=== PATIENT | male | born 1995 | race Hispanic/Latino ===

== ENCOUNTER 2024-10-10 19:18 | Emergency (ER) | payer OTHER ==
--- NOTE | 2024-10-10 19:50 | ERN ---
General Chief Complaint: Abdominal Pain Stated Complaint: RLQ ABDOMINAL PAIN Time Seen by MD: 19:25 Source: patient History of Present Illness Initial Comments 29-year-old healthy male comes in with right lower quadrant pain for the last three days. He denies any trauma any exercise induced or heavy lifting injuries. Pain started in her right lower quadrant stayed in the right lower quadrant it is intermittent. When it starts it feels like somebody is pushing hard down on his right lower quadrant pain the pain is constant until it goes away. Denies fevers chills nausea vomiting diarrhea constipation change in urin e quality. No noticeable bulge. Timing/Duration: 1 week Allergies: Coded Allergies: No Known Allergies (Unverified Allergy, Unknown, 10/10/24) Past Medical History Past Medical History: No Pertinent History Past Surgical History: None Constitutional: (-) chills, (-) diaphoresis, (-) fever, (-) malaise, (-) weakness, (-) other documentation EENTM: (-) eye pain, (-) blurred vision, (-) tearing, (-) double vision, (-) ear pain, (-) ear discharge, (-) nose pain, (-) nose congestion, (-) throat pain, (-) Throat swelling, (-) mouth pain, (-) tooth pain, (-) mouth swelling, (-) other documentation Respiratory: (-) cough, (-) orthopnea, (-) short of breath, (-) stridor, (-) wheezing, (-) other documentation Cardiovascular: (-) chest pain, (-) edema, (-) palpitations, (-) syncope, (-) dyspnea on exertion, (-) other documentation Gastrointestinal/Abdominal: (-) nausea, (-) vomiting, (-) diarrhea, (-) abdominal pain, (-) abdominal distention, (-) constipation, (-) rectal bleeding, (-) dark stool/melena, (-) other documentation Genitourinary: (-) penile discharge, (-) dysuria, (-) frequency, (-) hematuria, (-) pain, (-) other documentation Musculoskeletal: (-) Neck pain, (-) back pain, (-) Flank Pain, (-) joint pain, (-) joint swelling, (-) muscle pain, (-) muscle stiffness, (-) gout, (-) other documentation Skin: (-) laceration, (-) contusion, (-) abrasion, (-) abscess, (-) rash, (-) change in color, (-) change in hair, (-) change in nails, (-) diaphoresis, (-) dryness, (-) other documentation Physical Exam General Appearance: (+) no apparent distress Orientation: (+) oriented x 3 Head/Face Trauma: No Eye: bilateral eye normal inspection, bilateral eye PERRL, bilateral eye EOMI Ear, Nose, Throat: (+) hearing grossly normal, (+) normal ENT inspection, (+) moist mucous membraine Neck: (+) normal inspection, (+) supple, (+) full range of motion Respiratory: (+) chest non-tender, (+) lungs clear, (+) well ventilated Heart: (+) regular, (+) no gallop Vascular: (+) no edema, (+) normal peripheral pulse Gastrointestinal: (+) soft Gastrointestinal Comment Patient does have right lower quadrant tenderness but it is very mild I can push very hard in the right lower quadrant and the patient does not react. Genital Comment Doing a hernia exam the inguinal canal his empty there was no real hernia present when I asked the patient to cough I did not appreciate any bulging through the internal ring. MDM Patient's benign exam and current vital signs. I doubt a urine analysis or a CBC with be abnormal. I also feel like a CT scan is not needed in this situation. I will order an ultrasound to see if there is an inguinal hernia. The order is written at 7:49 p.m. Ultrasound is negative for any testicular abnormalities except for an 1 mm epididymal cyst on right testicle. Repeating the patient's abdominal exam does show muscle tenderness. I recommended the patient do conservative care. I will write a prescription for Flexeril for a few days to see if it improves things. ED Course Orders Procedure Category Date Status Time Us Scrotum & Contents US 10/10/24 Resulted 19:50 Vital Signs Date Time Temp Pulse Resp B/P (MAP) Pulse Ox O2 Delivery O2 Flow Rate FiO2 10/10/24 20:40 97.5 67 20 122/77 100 Room Air* 0 21 10/10/24 19:25 98.2 63 20 133/69 100 Room Air* 0 21 DX & DISP Disposition: Discharge Departure Impression: Primary Impression: Abdominal wall pain in right lower quadrant Condition: Stable Additional Instructions: Please return to the ED if the pain is accompanied by vomiting nausea fevers chills or worsening pain suggestive of an intra-abdominal process. Referrals: SELF,REFERRAL (PCP) ALESSANDRA RAMESH MD Oct 10, 2024 19:50
--- NOTE | 2024-10-10 20:39 | HMCIMG ---
US SCROTUM & CONTENTS HISTORY: Right inguinal hernia COMPARISON: None TECHNIQUE: Duplex scrotal ultrasound study was performed. Additional images of the right lower abdomen were obtained. FINDINGS: The right testes measures 4.3 x 2.9 x 2.6 cm. The left testes measures 4.3 x 3 x 2.5 cm. No evidence of intratesticular mass or abnormal calcification is seen. Normal flow is demonstrated in the testes and epididymides bilaterally. No hydroceles or varicocele is seen. No sonographic evidence of inguinal hernia is seen at this time. There is right epididymal cyst measuring a millimeter. IMPRESSION: 1. No evidence of intratesticular mass is seen. 2. Normal flow is demonstrated of both testes.
[2024-10-10] MEDS ORDERED: CYCL7.5T27 PO (21:00)
[2024-10-10 22:05] VITALS: BP 120/77; PULSE 66; RESP 20; TEMP 97.5; O2SAT 100
== END 2024-10-10 22:27 | disposition home or self-care (01) ==
LOC: EDH 19:18
DX: R10.31 Right lower quadrant pain (principal)
CPT/HCPCS: 76870; 99284